=== PATIENT | female | born 1995 | race Two or more races ===

== ENCOUNTER 2024-07-11 14:04 | Emergency (ER) | payer OTHER ==
[~2024-07-11] VITALS: Ht 167.6 cm; Wt 156.5 kg
[2024-07-11 14:30] VITALS: BP 142/91; TEMP 98.5; O2SAT 100
[2024-07-11] MEDS ORDERED: KETOROLAC TROMETHAMINE 15 MG/ML VIAL IV ONE (15:30)
[2024-07-11] MEDS ORDERED: KETOROLAC TROMETHAMINE 15 MG/ML VIAL ONE (15:49)
[2024-07-11] MEDS: KETOROLAC TROMETHAMINE 15 MG/ML VIAL IM ONE (16:32)
== END 2024-07-11 17:22 | disposition home or self-care (01) ==
LOC: ER 14:13
DX: M54.32 Sciatica, left side (principal); M79.605 Pain in left leg
CPT/HCPCS: 99285; 93971; 96372; 84703; J1885